=== PATIENT | male | born 1950 | race Caucasian/White ===

== ENCOUNTER 2022-07-09 11:44 | Emergency (ER) | payer MEDICARE ==
[~2022-07-09] VITALS: Ht 177.8 cm; Wt 100.0 kg
[2022-07-09] MEDS ORDERED: ATORVASTATIN CA40 MG (12:07)
[2022-07-09] MEDS ORDERED: OLMESARTAN MEDOX5 MG PO (12:08)
[2022-07-09] MEDS ORDERED: FLUTICASON0.05 MG/AC NS (12:08)
[2022-07-09] MEDS ORDERED: SINGULAIR 110 MG/TAB PO (12:08)
[2022-07-09] MEDS ORDERED: METFORMIN ER500 MG PO (12:08)
[2022-07-09 12:52] VITALS: BP 130/87
== END 2022-07-09 12:52 | disposition home or self-care (01) ==
LOC: ED 11:44
DX: S61.214A Laceration without foreign body of right ring finger without damage to nail, initial encounter (principal); Z28.311 Partially vaccinated for COVID-19; W26.0XXA Contact with knife, initial encounter
CPT/HCPCS: 90715

== ENCOUNTER → 2022-07-18 | Outpatient (CLI) | payer MEDICARE ==
[~2022-07-18] MED LIST: ATORVASTATIN CA40 MG; FLUTICASON0.05 MG/AC NS; METFORMIN ER500 MG PO; OLMESARTAN MEDOX5 MG PO; SINGULAIR 110 MG/TAB PO
== END ==
LOC: AMSURD 10:36
DX: Z48.02 Encounter for removal of sutures (principal)